=== PATIENT | female | born 1970 | race Caucasian/White ===

== ENCOUNTER → 2023-05-14 | Emergency (ER) | payer SELFPAY ==
[~2023-05-14] MED LIST: DIAZEPAM 5 MG TABLET ONE; FAMOTIDINE 20 MG TAB ONE
--- NOTE | 2023-05-14 13:19 | ER ---
Nurse's Notes [facility] [place] Name: Ezra Nunez Age: 52 yrs Sex: Female : 1970 Arrival Date: 05/14/2023 Time: 11:52 Bed 8 Private MD: Diagnosis: allergic reaction Presentation: 05/14 11:53 Chief complaint: EMS states: Facial swelling, hives and itching to chest and arms after ph working w/ epoxi, IV established, given 125 Solu-Medrol, Benadryl 25 mg IM, 25 mg IV, 300 Ml NS, symptoms improving, pt anxious, VSS. 12:00 Coronavirus screen: Vaccine status: Patient reports receiving the 2nd dose of the covid ph vaccine. Ebola Screen: No symptoms or risks identified at this time. Onset: The symptoms/episode began/occurred suddenly. Anaphylaxis evaluation, no signs or symptoms of anaphylaxis were noted. Initial Sepsis Screen: Does the patient meet any 2 criteria? No. Patient's initial sepsis screen is negative. Does the patient have a suspected source of infection? No. Patient's initial sepsis screen is negative. Risk Assessment: Do you want to hurt yourself or someone else? Patient reports no desire to harm self or others. Onset of symptoms was May 14, 2023. 12:00 Method Of Arrival: EMS: [facility] 12:00 Acuity: JANEL 3 ph Triage Assessment: 11:58 General: Appears in no apparent distress. uncomfortable, well groomed, Behavior is ph cooperative, anxious. Pain: Denies pain. Neuro: Level of Consciousness is awake, alert, obeys commands, Oriented to person, place, time, situation. Cardiovascular: Capillary refill < 3 seconds in bilateral fingers Patient's skin is warm and dry. Respiratory: Airway is patent Respiratory effort is even, unlabored, Respiratory pattern is regular, symmetrical. Derm: hives to chest. Musculoskeletal: Circulation, motion, and sensation intact. Range of motion: intact in all extremities. 11:59 General: Appears uncomfortable, Behavior is cooperative, anxious, crying, restless. ll1 Derm: Reports rash with itching to face and upper body. Historical: - Allergies: 11:58 "Epoxi fumes"; ph - PMHx: 11:58 None; ph - Immunization history:: Adult Immunizations unknown. - Social history:: Smoking status: Patient reports the use of cigarette tobacco products, smokes one-half pack cigarettes per day. Screenin:01 [facility] ED Fall Risk Assessment (Adult) History of falling in the last 3 months, ph including since admission No falls in past 3 months (0 pts) Confusion or Disorientation No (0 pts) Intoxicated or Sedated No (0 pts) Impaired Gait No (0 pts) Mobility Assist Device Used No (0 pt) Altered Elimination No (0 pt) Score/Fall Risk Level 0 - 2 = Low Risk Oriented to surroundings, Maintained a safe environment, Provided non-skid footwear, Hourly rounding (assess needs \\T\\ fall precautionary measures) done. Abuse screen: Denies threats or abuse. Denies injuries from another. Nutritional screening: No deficits noted. Tuberculosis screening: No symptoms or risk factors identified. Assessment: 12:00 Reassessment: SEE TRIAGE ASSESSMENT. ph 13:37 Reassessment: Patient appears in no apparent distress at this time. Patient and/or ph family updated on plan of care and expected duration. Pain level reassessed. Patient is alert, oriented x 3, equal unlabored respirations, skin warm/dry/pink. Patient denies pain at this time. Patient states feeling better. Patient states symptoms have improved. 13:45 Reassessment: Simeon conde called as patient departed ED at 1345. Patient was acting ap3 erratic, and was verbally aggressive to ED Registration staff. Vital Signs: 12:02 BP 179 / 95; Pulse 106; Resp 18; Pulse Ox 98% on R/A; ph 13:38 BP 154 / 78; Pulse 97; Resp 18; Temp 98; Pulse Ox 99% on R/A; ph ED Course: 11:52 Patient arrived in ED. ph 11:53 Emily Rollins PA-C is PHCP. sb4 11:53 Ryley Ibarra MD is Attending Physician. sb4 11:58 Arm band placed on Patient placed in an exam room. ph 11:59 Raysa Stallings, FILIPPO is Primary Nurse. ll1 12:01 Triage completed. ph 12:02 Patient has correct armband on for positive identification. Bed in low position. Call ph light in reach. Side rails up X 1. Pulse ox on. NIBP on. 13:37 No provider procedures requiring assistance completed. IV discontinued, intact, ph bleeding controlled, No redness/swelling at site. Pressure dressing applied. Administered Medications: 12:10 Drug: Famotidine PO 20 mg PO once Route: PO; ll1 13:38 Follow up: Response: No adverse reaction ll1 12:11 Drug: Diazepam PO 10 mg PO once {Note: 1335- Valium 5 MG PO given as she was ll1 discharged. Friend driving home. .} Route: PO; 13:39 Follow up: Response: No adverse reaction ll1 Medication: 12:01 VIS not applicable for this client. ph Outcome: 13:19 Discharge ordered by . sb4 13:39 Discharged to home ambulatory, ph 13:39 Condition: good 13:39 Discharge instructions given to patient, Instructed on discharge instructions, follow up and referral plans. medication usage, Demonstrated understanding of instructions, follow-up care, medications, Prescriptions given X 3, 13:39 Patient left the ED. ph Signatures: Maria R Umana RN RN Radha Silva RN RN ap3 Rayas Stallings RN RN ll1 Emily Rollins PA-C PAKasandra sb4 Corrections: (The following items were deleted from the chart) 12:40 12:11 Diazepam PO 10 mg PO ll1 ll1 13:39 12:11 Diazepam PO 5 mg PO ll1 ll1
--- NOTE | 2023-05-14 13:19 | EDPHYS ---
Physician Documentation [facility] Name: Ezra Nunez Age: 52 yrs Sex: Female : 1970 Arrival Date: 05/14/2023 Time: 11:52 Bed 8 Private MD: ED Physician Ryley Ibarra HPI: 05/14 12:01 This 52 yrs old Female presents to ER via EMS with complaints of Allergic Reaction. 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 she states she developed hives, itching, and shortness of breath so called EMS. EMS administered Benadryl, solumedrol, and IV fluids. no airway swelling/difficulty breathing upon arrival, symptoms have vastly improved. she is very anxious . Historical: - Allergies: 11:58 "Epoxi fumes"; ph - PMHx: 11:58 None; ph - Immunization history:: Adult Immunizations unknown. - Social history:: Smoking status: Patient reports the use of cigarette tobacco products, smokes one-half pack cigarettes per day. ROS: 13:24 Constitutional: Negative for fever, chills, and weight loss, sb4 13:24 Skin: Positive for hives, itching, 13:24 Psych: Positive for anxiety, 13:24 All other systems are negative, Exam: 13:24 Head/Face: Normocephalic, atraumatic. Eyes: Extra-ocular motions intact. Periorbital sb4 areas with no swelling, redness, or edema. ENT: Mucous membranes moist. Cardiovascular: Regular rate and rhythm with a normal S1 and S2. Respiratory: Lungs have equal breath sounds bilaterally, clear to auscultation and percussion. No rales, rhonchi or wheezes noted. No increased work of breathing, no retractions or nasal flaring. Abdomen/GI: Soft, non-tender, no distension. Skin: Warm, dry with normal turgor. Normal color with no rashes, no lesions, and no evidence of cellulitis. MS/ Extremity: Pulses equal, no cyanosis. Neurovascular intact. Full, normal range of motion. Neuro: Awake and alert, GCS 15, oriented to person, place, time, and situation. Motor strength 5/5 in all extremities. Sensory grossly intact. 13:24 Constitutional: The patient appears alert, awake, anxious, Vital Signs: 12:02 BP 179 / 95; Pulse 106; Resp 18; Pulse Ox 98% on R/A; ph 13:38 BP 154 / 78; Pulse 97; Resp 18; Temp 98; Pulse Ox 99% on R/A; ph MDM: 11:53 Patient medically screened. sb4 13:24 Differential diagnosis: anaphylaxis, angioedema, Mastocystosis non IgE mediated drug sb4 reaction urticaria. Data reviewed: vital signs, nurses notes, and as a result, I will discharge patient. Counseling: I had a detailed discussion with the patient and/or guardian regarding the historical points, exam findings, and any diagnostic results supporting the discharge/admit diagnosis, the presence of at least one elevated blood pressure reading (>120/80) during this emergency department visit, to return to the emergency department if symptoms worsen or persist or if there are any questions or concerns that arise at home. Administered Medications: 12:10 Drug: Famotidine PO 20 mg PO once Route: PO; ll1 13:38 Follow up: Response: No adverse reaction ll1 12:11 Drug: Diazepam PO 10 mg PO once {Note: 1335- Valium 5 MG PO given as she was ll1 discharged. Friend driving home. .} Route: PO; 13:39 Follow up: Response: No adverse reaction ll1 Disposition: 15:36 Co-signature as Attending Physician, Ryley Ibarra MD I reviewed the patient's care rt provided by the Advanced Practice Provider and agree with the diagnosis and treatment plan. Disposition Summary: 05/14/23 13:19 Discharge Ordered Notes: Location: Home sb4 Problem: new sb4 Symptoms: have improved sb4 Condition: Stable sb4 Diagnosis - allergic reaction sb4 Followup: sb4 - With: Emergency Department - When: As needed - Reason: Trouble breathing, Worsening of condition Discharge Instructions: - Discharge Summary Sheet sb4 - Anaphylactic Reaction, Adult, [id number] sb4 Forms: - Medication Reconciliation Form sb4 - Thank You Letter sb4 - Antibiotic Education sb4 - Prescription Opioid Use sb4 - Patient Portal Instructions sb4 - Leadership Thank You Letter sb4 Prescriptions: - epinephrine 0.15 mg/0.3 mL Injection Auto-Injector - administer 0.3 milliliter INTRAMUSCULAR route every 10 minutes as needed for sb4 anaphylaxis; not to exceed 6 doses per episode; 3 Applicator; Refills: 0, Product Selection Permitted - Pepcid 20 mg Oral Tablet - take 1 tablet ORAL route every 12 hours for 5 days; 10 tablet; Refills: 0, sb4 Product Selection Permitted - Prednisone 20 mg Oral Tablet - take 1 tablet ORAL route every 12 hours for 5 days; 10 tablet; Refills: 0, sb4 Product Selection Permitted Signatures: Maria R Umana RN RN Raysa Stallings RN RN ll1 Emily Rollins PA-C PAKasandra sb4 Ryley Ibarra MD MD rt
[2023-05-14 14:37] VITALS: BP 154/78; TEMP 98; O2SAT 99
== END ==
LOC: ER 11:52
DX: L50.9 Urticaria, unspecified (principal); R06.02 Shortness of breath; L29.9 Pruritus, unspecified